=== PATIENT | female | born 1985 | race Hispanic/Latino ===

== ENCOUNTER 2019-08-14 20:27 | Emergency (ER) | payer SELFPAY ==
[2019-08-14] MEDS ORDERED: ACETAMINOPHEN 500 MG TAB ONE (21:12)
--- NOTE | 2019-08-14 23:19 | ER ---
Nurse's Notes [facility] Name: Florina Murphy Age: 33 yrs Sex: Female : 1985 Arrival Date: 08/14/2019 Time: 20:31 Bed 17 Private MD: Diagnosis: Acute upper respiratory infection, unspecified Presentation: 08/13 20:40 Chief complaint: Patient states: "Cough with body aches, shortness of breath and sore vc throat for 3 days.". Coronavirus screen: Surgical mask placed on patient. Patient moved to private room, placed in contact and droplet isolation with eye protection until further assessment. Patient reports a cough. Patient reports shortness of breath or difficulty breathing. Patient reports a measured and/or subjective temperature greater than 100.4F. Patient denies travel on a cruise ship or to a country the [facility] currently lists as an affected area. Patient denies contact with known and/or suspected case of COVID-19. Ebola Screen: No symptoms or risks identified at this time. 20:40 Method Of Arrival: Ambulatory vc 21:00 Initial Sepsis Screen: Does the patient meet any 2 criteria? RR > 20 per min. Temp vc <36.0*C (96.8*F)) or > 38.3*C (100.9*F). HR > 90 bpm. Yes Does the patient have a suspected source of infection? Yes: Productive cough/pneumonia If YES to both, name of provider notified: Yulia Flores BEATER LEAD-Anton Risk Assessment: Do you want to hurt yourself or someone else? Patient reports no desire to harm self or others. Onset of symptoms was August 11, 2019. 21:00 Acuity: ALTON 3 vc Triage Assessment: 22:32 General: Appears in no apparent distress. uncomfortable, ill, Behavior is calm, vc cooperative, appropriate for age. Pain: Complains of pain in throat. 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 - Social history:: Smoking status: Patient denies any tobacco usage or history of. Screenin:00 Abuse screen: Denies threats or abuse. Nutritional screening: No deficits noted. vc Tuberculosis screening: No symptoms or risk factors identified. Fall Risk None identified. Assessment: 21:00 General: Appears in no apparent distress. uncomfortable, ill, Behavior is calm, vc cooperative, appropriate for age. Neuro: Level of Consciousness is awake, alert, obeys commands, Oriented to person, place, time, situation, Appropriate for age. Cardiovascular: Reports shortness of breath, Patient's skin is warm and dry. Respiratory: Reports shortness of breath cough that is pain with cough Airway is patent Respiratory effort is even, labored, Respiratory pattern is regular, symmetrical. GI: No signs and/or symptoms were reported involving the gastrointestinal system. : No signs and/or symptoms were reported regarding the genitourinary system. Derm: Skin is intact, is healthy with good turgor, Skin temperature is hot. 22:00 Reassessment: Patient appears in no apparent distress at this time. Patient and/or vc family updated on plan of care and expected duration. Pain level reassessed. 23:00 Reassessment: Patient appears in no apparent distress at this time. Patient and/or vc family updated on plan of care and expected duration. Pain level reassessed. Vital Signs: 21:00 BP 129 / 77; Pulse 113; Resp 24; Temp 103; Pulse Ox 96% on R/A; vc 22:00 BP 110 / 67; Pulse 93; Resp 20; Pulse Ox 96% on R/A; vc 22:44 Pulse 95; Temp 100.0(O); Pulse Ox 95% on R/A; vc 23:23 BP 100 / 64; Pulse 91; Resp 20; Pulse Ox 96% on R/A; vc ED Course: 20:31 Patient arrived in ED. ag3 20:32 Yulia Flores FNP-C is PHCP. kb 20:32 Mil Massey MD is Attending Physician. kb 20:37 Johana Parmar RN is Primary Nurse. vc 21:00 Arm band placed on. vc 21:00 Patient has correct armband on for positive identification. Side rails up X 1. Pulse ox vc on. NIBP on. 21:09 Chest Single View XRAY In Process Unspecified. EDMS 21:27 Triage completed. vc 23:35 No provider procedures requiring assistance completed. Patient did not have IV access vc during this emergency room visit. Administered Medications: 21:25 Drug: Tylenol 1000 mg Route: PO; vc 22:47 Follow up: Response: Temperature is decreased vc Outcome: 23:18 Discharge ordered by . cyndee 23:36 Discharged to home ambulatory. vc 23:36 Condition: good 23:36 Discharge instructions given to patient, Instructed on discharge instructions, follow up and referral plans. medication usage, Demonstrated understanding of instructions, follow-up care, medications, Prescriptions given X 1. 23:37 Patient left the ED. vc Addendum: 08/19/2019 17:40 Addendum: COVID-19 Result: Positive result giiven to ED physician to notify pt. s s Physician was able to contact pt and pt was notified of positive COVID-19 swab result. Physician answered pt questions. Other: Dr. Kate notified patient. Albuterol inhaler called into [facility] choice, [facility]. Signatures: Dispatcher [employer] EDOK Yulia Flores, BEATER LEAD-C BEATER LEAD-Sugar Rapp, RN RN Myriam Giraldo ag3 Johana Parmar RN RN vc
--- NOTE | 2019-08-14 23:19 | EDPHYS ---
Physician Documentation [facility] Name: Florina Murphy Age: 33 yrs Sex: Female : 1985 Arrival Date: 08/14/2019 Time: 20:31 Bed 17 Private MD: ED Physician Mil Massey HPI: 08/13 20:43 This 33 yrs old Female presents to ER via Unassigned with complaints of Cough. kb 20:43 The patient or guardian reports cough, that is intermittent, described as mild, flu kb symptoms, low-grade fever, myalgias. Onset: The symptoms/episode began/occurred 3 day(s) ago. Severity of symptoms: At their worst the symptoms were moderate, in the emergency department the symptoms are unchanged. Modifying factors: The symptoms are alleviated by nothing, the symptoms are aggravated by nothing. Associated signs and symptoms: Pertinent positives: fever, sore throat, Pertinent negatives: chest pain, diarrhea, ear ache, nausea, rhinorrhea, vomiting. The patient has not experienced similar symptoms in the past. The patient has not recently seen a physician. 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 - Social history:: Smoking status: Patient denies any tobacco usage or history of. ROS: 20:42 Neck: Negative for injury, pain, and swelling, Cardiovascular: Negative for chest pain, kb palpitations, and edema, Abdomen/GI: Negative for abdominal pain, nausea, vomiting, diarrhea, and constipation, Back: Negative for injury and pain, : Negative for injury, bleeding, discharge, and swelling, MS/Extremity: Negative for injury and deformity, Skin: Negative for injury, rash, and discoloration, Neuro: Negative for headache, weakness, numbness, tingling, and seizure. 20:42 Constitutional: Positive for body aches, chills, fatigue, fever, malaise. 20:42 ENT: Positive for sore throat. 20:42 Respiratory: Positive for cough, Negative for dyspnea on exertion, hemoptysis, orthopnea, pleurisy, shortness of breath, sputum production, wheezing. 20:42 Neuro: Positive for headache. Exam: 20:42 Constitutional: This is a well developed, well nourished patient who is awake, alert, kb and in no acute distress. Head/Face: Normocephalic, atraumatic. ENT: Nares patent. No nasal discharge, no septal abnormalities noted. Tympanic membranes are normal and external auditory canals are clear. Oropharynx with no redness, swelling, or masses, exudates, or evidence of obstruction, uvula midline. Mucous membranes moist. Neck: Trachea midline, no thyromegaly or masses palpated, and no cervical lymphadenopathy. Supple, full range of motion without nuchal rigidity, or vertebral point tenderness. No Meningismus. Chest/axilla: Normal chest wall appearance and motion. Nontender with no deformity. No lesions are appreciated. Cardiovascular: Regular rate and rhythm with a normal S1 and S2. No gallops, murmurs, or rubs. Normal PMI, no JVD. No pulse deficits. Respiratory: Lungs have equal breath sounds bilaterally, clear to auscultation and percussion. No rales, rhonchi or wheezes noted. No increased work of breathing, no retractions or nasal flaring. Abdomen/GI: Soft, non-tender, with normal bowel sounds. No distension or tympany. No guarding or rebound. No evidence of tenderness throughout. Skin: Warm, dry with normal turgor. Normal color with no rashes, no lesions, and no evidence of cellulitis. MS/ Extremity: Pulses equal, no cyanosis. Neurovascular intact. Full, normal range of motion. Neuro: Awake and alert, GCS 15, oriented to person, place, time, and situation. Cranial nerves II-XII grossly intact. Motor strength 5/5 in all extremities. Sensory grossly intact. Cerebellar exam normal. Normal gait. Vital Signs: 21:00 BP 129 / 77; Pulse 113; Resp 24; Temp 103; Pulse Ox 96% on R/A; vc 22:00 BP 110 / 67; Pulse 93; Resp 20; Pulse Ox 96% on R/A; vc 22:44 Pulse 95; Temp 100.0(O); Pulse Ox 95% on R/A; vc 23:23 BP 100 / 64; Pulse 91; Resp 20; Pulse Ox 96% on R/A; vc MDM: 20:33 Patient medically screened. kb 20:42 Data reviewed: vital signs, nurses notes. Data interpreted: Pulse oximetry: on room air kb is 98 %. Interpretation: normal. Counseling: I had a detailed discussion with the patient and/or guardian regarding: the historical points, exam findings, and any diagnostic results supporting the discharge/admit diagnosis, lab results, radiology results, the need for outpatient follow up, a family practitioner, to return to the emergency department if symptoms worsen or persist or if there are any questions or concerns that arise at home. 08/13 20:38 Order name: Flu; Complete Time: 23:18 kb 08/13 20:38 Order name: COVID-19 kb 08/13 20:38 Order name: Chest Single View XRAY kb 08/13 20:40 Order name: Strep; Complete Time: 23:18 kb 08/13 23:20 Order name: Throat Culture EDMS Administered Medications: 21:25 Drug: Tylenol 1000 mg Route: PO; vc 22:47 Follow up: Response: Temperature is decreased vc Disposition: 08/14 04:21 Co-signature as Attending Physician, Mil Massey MD. rn Disposition: 08/14/19 23:18 Discharged to Home. Impression: Acute upper respiratory infection, unspecified. - Condition is Stable. - Discharge Instructions: Viral Respiratory Infection, [id number], COVID-19. - Prescriptions for Albuterol Sulfate 90 mcg/actuation - inhale 1-2 puff by INHALATION route every 4-6 hours; 1 Inhaler. - Medication Reconciliation Form, Thank You Letter, Antibiotic Education, Prescription Opioid Use form. - Follow up: Emergency Department; When: As needed; Reason: Worsening of condition. Follow up: Private Physician; When: 2 - 3 days; Reason: Recheck today's complaints, Continuance of care, Re-evaluation by your physician. Signatures: Dispatcher [employer] EDMS Yulia Flores, CAFE SERVER-C CAFE SERVER-Mil Lee MD MD rn Calcote, Vanessa, RN RN vc Corrections: (The following items were deleted from the chart) 08/13 23:37 23:18 08/14/2019 23:18 Discharged to Home. Impression: Acute upper respiratory vc infection, unspecified. Condition is Stable. Forms are Medication Reconciliation Form, Thank You Letter, Antibiotic Education, Prescription Opioid Use. Follow up: Emergency Department; When: As needed; Reason: Worsening of condition. Follow up: Private Physician; When: 2 - 3 days; Reason: Recheck today's complaints, Continuance of care, Re-evaluation by your physician. kb
[2019-08-14 23:46] VITALS: TEMP 100
[2019-08-14 23:47] VITALS: BP 100/64; O2SAT 96
--- NOTE | 2019-08-15 08:38 | RAD REPORT ---
EXAM DESCRIPTION: RAD - Chest Single View - 08/14/2019 9:09 pm CLINICAL HISTORY: COUGH Chest pain. COMPARISON: No comparisons FINDINGS: Portable technique limits examination quality. Mildly prominent interstitial lung markings. The heart is normal in size. No displaced fractures. IMPRESSION: Mild interstitial pneumonitis is possible.
== END 2019-08-14 23:37 | disposition home or self-care (01) ==
LOC: ER 20:27
DX: U07.1 COVID-19 (principal); J06.9 Acute upper respiratory infection, unspecified
CPT/HCPCS: 71045; 87070; 87081; 87804; 99284; U0002

== ENCOUNTER 2022-02-09 11:20 | Emergency (ER) | payer SELFPAY ==
--- OUTSIDE RECORDS SUMMARY | 2022-02-09 11:24 | XMS REPORT | Continuity of Care Document ---
:1985 Author Organization [facility] t Address [address] [place] [address] Care Team Providers Name Role Phone Leticia Ferris Primary Care Physician [phone] LETICIA TORRES Attending Clinician Unavailable CHRISTINA TINAJERO Attending Clinician Unavailable Leticia Ferris Attending Clinician [phone] Christina Ribera Attending Clinician Doctor Unassigned, [place] Attending Clinician Unavailable JOEL DAMIAN Attending Clinician Unavailable Nurse, Adc Pob Immunization Attending Clinician Unavailable Joel Damian DO Attending Clinician SHORTY MIRANDA Attending Clinician Unavailable Pgy3 Attending Clinician Unavailable Charlie SEE, Renetta Attending Clinician Marilou Moulton Attending Clinician Chanel Bloom MD Attending Clinician MARILOU PLUMMER Attending Clinician Unavailable CHANEL BLOOM Attending Clinician Unavailable Ricardo Carver Attending Clinician RICARDO JACOBSEN Attending Clinician Unavailable Pob, Adc Lab Main Attending Clinician Unavailable Kimi Diaz RN Attending Clinician Unavailable TAO TURNER Attending Clinician Unavailable Tao Turner MD Attending Clinician Payers Payer Name Policy Type Policy Number Effective Date Expiration Date S ourlisa Problems Condition Condition Condition Status Onset Resolution Last Treating Co mments Source Name Details Category Date Date Treatment Clinician Date 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) Other Other Disease Active Univers general general 1-28 [place] counseling [place] and advice 00 Me dical for for Branch contracept contracept pernell pernell management management Irregular Irregular Disease Active Uni vers menstrual menstrual 03-08 ity of cycle cycle 00:00: [place] 00 [facility] Branch Patient Patient Disease Active Univers desires desires 1-16 [place] Infertilit Infertilit Disease Active U nivers y y 5-02 [place] Obesity Obesity Disease Active Overview: Univ ers (BMI (BMI 3-16 Formattin ity of 30-39.9) 30-39.9) 00:00: g of this Justin as 00 note Medical might be Branch different from the original. ICD10 Diagnosis Term Automation Analyst Utility Allergies, Adverse Reactions, Alerts Allergy Allergy Status Severity Reaction(s) Onset Inactive Treating Comm ents Source Name Type Date Date Clinician NO KNOWN Drug Active Univers ALLERGIE Class ity of S [facility] Social History Social Habit Start Date Stop Date Quantity Comments Source Exposure to 2021-11-12 2021 Not sure [facility] SARS-CoV-2 00:00:00 09:14:00 [place] [facility] (event) Branch Alcohol intake 2021 2021 Current University of 00:00:00 00:00:00 non-drinker of [facility] alcohol (finding) Branch Tobacco use and 2021 2021 Smokeless tobacco Un iversity of exposure 00:00:00 00:00:00 non-user [facility] Sex Ass[birth year] At [birth year] Universit y of 00:00:00 00:00:00 [facility] Smoking Status Start Date Stop Date Source Never smoked tobacco [facility] Medications Ordered Filled Start Stop Current Ordering Indication Dosage Frequency Signature Comments Components Source Medication Medication Date Date Medication? Clinician (SIG) Name Name No known 2021-02 No No known Unive rs medications 0-14 medication it y of 09:34: [address] No known 2021-02 No No known Unive rs medications 0-14 medication it y of 09:34: [address] No known 2021-02 No No known Unive rs medications 0-14 medication it y of 09:34: [address] No known 2021-02 No No known Unive rs medications 0-14 medication it y of 09:34: [address] No known 2021-02 No No known Unive rs medications 0-14 medication it y of 09:34: [address] No known 2021-02 No No known Unive rs medications 0-14 medication it y of 09:34: [address] No known 2021-02 No No known Unive rs medications 0-14 medication it y of 09:34: [address] No known 2021-02 No No known Unive rs medications 0-14 medication it y of 09:34: [address] No known 2021-02 No No known Unive rs medications 0-14 medication it y of 09:34: [address] No known 2021-02 No No known Unive rs medications 0-14 medication it y of 09:34: [address] No known No Univers medications 6-24 ity of 10:42: [address] Immunizations Ordered Filled Immunization Date Status Comments Sourc e Immunization Name Name SARS-COV-2 COVID-19 2021-02-22 Completed Unive rsity of PFIZER VACCINE 00:00:00 [facility] SARS-COV-2 COVID-19 2021-02-22 Completed Unive rsity of PFIZER VACCINE 00:00:00 [facility] SARS-COV-2 COVID-19 2021-02-22 Completed Unive rsity of PFIZER VACCINE 00:00:00 [facility] Branch SARS-COV-2 COVID-19 2021-02-22 Completed Unive rsity of PFIZER VACCINE 00:00:00 [facility] Branch SARS-COV-2 COVID-19 2021-02-22 Completed Unive rsity of PFIZER VACCINE 00:00:00 [facility] Branch SARS-COV-2 COVID-19 2021-02-22 Completed Unive rsity of PFIZER VACCINE 00:00:00 [facility] Branch SARS-COV-2 COVID-19 2021-02-22 Completed Unive rsity of PFIZER VACCINE 00:00:00 [facility] Branch SARS-COV-2 COVID-19 2021-02-22 Completed Unive rsity of PFIZER VACCINE 00:00:00 [facility] SARS-COV-2 COVID-19 2021-02-22 Completed Unive rsity of PFIZER VACCINE 00:00:00 [facility] SARS-COV-2 COVID-19 2021-02-22 Completed Unive rsity of PFIZER VACCINE 00:00:00 [facility] SARS-COV-2 COVID-19 2021-02-22 Completed Unive rsity of PFIZER VACCINE 00:00:00 [facility] Branch SARS-COV-2 COVID-19 2020-07-12 Completed Unive rsity of PFIZER VACCINE 00:00:00 [facility] Branch SARS-COV-2 COVID-19 2020-07-12 Completed Unive rsity of PFIZER VACCINE 00:00:00 [facility] SARS-COV-2 COVID-19 2020-07-12 Completed Unive rsity of PFIZER VACCINE 00:00:00 [facility] Branch SARS-COV-2 COVID-19 2020-07-12 Completed Unive rsity of PFIZER VACCINE 00:00:00 [facility] Branch SARS-COV-2 COVID-19 2020-07-12 Completed Unive rsity of PFIZER VACCINE 00:00:00 [facility] Branch SARS-COV-2 COVID-19 2020-07-12 Completed Unive rsity of PFIZER VACCINE 00:00:00 [facility] SARS-COV-2 COVID-19 2020-07-12 Completed Unive rsity of PFIZER VACCINE 00:00:00 [facility] SARS-COV-2 COVID-19 2020-07-12 Completed Unive rsity of PFIZER VACCINE 00:00:00 [facility] SARS-COV-2 COVID-19 2020-07-12 Completed Unive rsity of PFIZER VACCINE 00:00:00 [facility] SARS-COV-2 COVID-19 2020-07-12 Completed Unive rsity of PFIZER VACCINE 00:00:00 [facility] SARS-COV-2 COVID-19 2020-07-12 Completed Unive rsity of PFIZER VACCINE 00:00:00 [facility] SARS-COV-2 COVID-19 2020-06-22 Completed Unive rsity of PFIZER VACCINE 00:00:00 [facility] SARS-COV-2 COVID-19 2020-06-22 Completed Unive rsity of PFIZER VACCINE 00:00:00 [facility] SARS-COV-2 COVID-19 2020-06-22 Completed Unive rsity of PFIZER VACCINE 00:00:00 [facility] SARS-COV-2 COVID-19 2020-06-22 Completed Unive rsity of PFIZER VACCINE 00:00:00 [facility] SARS-COV-2 COVID-19 2020-06-22 Completed Unive rsity of PFIZER VACCINE 00:00:00 [facility] SARS-COV-2 COVID-19 2020-06-22 Completed Unive rsity of PFIZER VACCINE 00:00:00 [facility] SARS-COV-2 COVID-19 2020-06-22 Completed Unive rsity of PFIZER VACCINE 00:00:00 [facility] SARS-COV-2 COVID-19 2020-06-22 Completed Unive rsity of PFIZER VACCINE 00:00:00 [facility] SARS-COV-2 COVID-19 2020-06-22 Completed Unive rsity of PFIZER VACCINE 00:00:00 [facility] SARS-COV-2 COVID-19 2020-06-22 Completed Unive rsity of PFIZER VACCINE 00:00:00 [facility] SARS-COV-2 COVID-19 2020-06-22 Completed Unive rsity of PFIZER VACCINE 00:00:00 [facility] Influenza Virus 2019-02-24 Completed Universit y of Vaccine Quad .5 mL 00:00:00 [place] [facility] MO Branch Influenza Virus 2019-02-24 Completed Universit y of Vaccine Quad .5 mL 00:00:00 [place] [facility] 6+ MO Branch Influenza Virus 2019-02-24 Completed Universit y of Vaccine Quad .5 mL 00:00:00 [place] [facility] 6+ MO Branch Influenza Virus 2019-02-24 Completed Universit y of Vaccine Quad .5 mL 00:00:00 [place] [facility] 6+ MO Branch Influenza Virus 2019-02-24 Completed Universit y of Vaccine Quad .5 mL 00:00:00 [place] [facility] 6+ MO Branch Influenza Virus 2019-02-24 Completed Universit y of Vaccine Quad .5 mL 00:00:00 [place] [facility] 6+ MO Branch Influenza Virus 2019-02-24 Completed Universit y of Vaccine Quad .5 mL 00:00:00 [place] [facility] 6+ MO Branch Influenza Virus 2019-02-24 Completed Universit y of Vaccine Quad .5 mL 00:00:00 [place] [facility] 6+ MO Branch Influenza Virus 2019-02-24 Completed Universit y of Vaccine Quad .5 mL 00:00:00 [place] [facility] 6+ MO Branch Influenza Virus 2019-02-24 Completed Universit y of Vaccine Quad .5 mL 00:00:00 [place] [facility] 6+ MO Branch Influenza Virus 2019-02-24 Completed Universit y of Vaccine Quad .5 mL 00:00:00 [facility] 6+ MO Branch TDAP 2014-03-28 Completed University of 00:00:00 [facility] TDAP 2014-03-28 Completed University of 00:00:00 [facility] TDAP 2014-03-28 Completed University of 00:00:00 [facility] TDAP 2014-03-28 Completed University of 00:00:00 [facility] TDAP 2014-03-28 Completed University of 00:00:00 [facility] TDAP 2014-03-28 Completed University of 00:00:00 [facility] TDAP 2014-03-28 Completed University of 00:00:00 [facility] TDAP 2014-03-28 Completed University of 00:00:00 [facility] TDAP 2014-03-28 Completed University of 00:00:00 [facility] TDAP 2014-03-28 Completed University of 00:00:00 [facility] TDAP 2014-03-28 Completed University of 00:00:00 [facility] MMR 2009-09-13 Completed University of 00:00:00 [place] [facility] MMR 2009-09-13 Completed University of 00:00:00 [place] [facility] MMR 2009-09-13 Completed University of 00:00:00 [place] [facility] MMR 2009-09-13 Completed University of 00:00:00 [place] [facility] MMR 2009-09-13 Completed University of 00:00:00 [place] [facility] MMR 2009-09-13 Completed University of 00:00:00 [place] [facility] MMR 2009-09-13 Completed University of 00:00:00 [place] [facility] MMR 2009-09-13 Completed University of 00:00:00 [place] [facility] MMR 2009-09-13 Completed University of 00:00:00 [place] [facility] MMR 2009-09-13 Completed University of 00:00:00 [place] [facility] MMR 2009-09-13 Completed University of 00:00:00 [facility] PPD (TB) 2009-04-25 Completed University of 00:00:00 [facility] PPD (TB) 2009-04-25 Completed University of 00:00:00 [facility] PPD (TB) 2009-04-25 Completed University of 00:00:00 [facility] PPD (TB) 2009-04-25 Completed University of 00:00:00 [facility] PPD (TB) 2009-04-25 Completed University of 00:00:00 [facility] PPD (TB) 2009-04-25 Completed University of 00:00:00 [facility] PPD (TB) 2009-04-25 Completed University of 00:00:00 [facility] PPD (TB) 2009-04-25 Completed University of 00:00:00 [facility] PPD (TB) 2009-04-25 Completed University of 00:00:00 [facility] PPD (TB) 2009-04-25 Completed University of 00:00:00 [facility] PPD (TB) 2009-04-25 Completed University of 00:00:00 [facility] Branch Td 2003-11-15 Completed University of 00:00:00 [facility] Branch Td 2003-11-15 Completed University of 00:00:00 [place] [facility] Td 2003-11-15 Completed University of 00:00:00 [place] [facility] Td 2003-11-15 Completed University of 00:00:00 [place] [facility] Td 2003-11-15 Completed University of 00:00:00 [place] [facility] Td 2003-11-15 Completed University of 00:00:00 [place] [facility] Td 2003-11-15 Completed University of 00:00:00 [place] [facility] Td 2003-11-15 Completed University of 00:00:00 [place] [facility] Td 2003-11-15 Completed University of 00:00:00 [place] [facility] Td 2003-11-15 Completed University of 00:00:00 [facility] TD, NOS 2003-11-15 Completed University of 00:00:00 [facility] Vital Signs Vital Name Observation Time Observation Value Comments Source Systolic blood 2021 14:16:00 116 mm[Hg] Univer sity of pressure [place] [facility] Diastolic blood 2021 14:16:00 72 mm[Hg] Unive rsity of pressure [place] [facility] Heart rate 2021 14:16:00 82 /min Universi ty of [facility] Body temperature 2021 14:16:00 36.17 Louise Univ ersity of [facility] Branch Respiratory rate 2021 14:16:00 18 /min Univ ersity of [place] [facility] Body weight 2021 14:16:00 74.753 kg Universi ty of [place] [facility] BMI 2021 14:16:00 32.19 kg/m2 Universi ty of [place] [facility] Systolic blood 2021-08-02 15:36:00 115 mm[Hg] Univer sity of pressure [place] [facility] Diastolic blood 2021-08-02 15:36:00 72 mm[Hg] Unive rsity of pressure [facility] Heart rate 2021-08-02 15:36:00 88 /min Universi ty of [place] [facility] Body temperature 2021-08-02 15:36:00 36.78 Louise Univ ersity of [place] [facility] Respiratory rate 2021-08-02 15:36:00 18 /min Univ ersity of [place] [facility] Body height 2021-08-02 15:36:00 152.4 cm Universi ty of [place] [facility] Body weight 2021-08-02 15:36:00 76.403 kg Universi ty of [place] [facility] BMI 2021-08-02 15:36:00 32.90 kg/m2 Universi ty [facility] Procedures Procedure Date / Time Performing Clinician Source Performed AUTHORIZATION FOR 2021-12-20 06:01:00 Doctor Unassigned, No [facility] RELEASE OF PHI Name [facility] BCCS-RELATED 2021 05:01:00 Doctor Unassigned, No [facility] DOCUMENTATION Name [facility] Encounters Start End Encounter Admission Attending Care Care Encounter Source Date/Time Date/Time Type Type Clinicians Facility Department ID 2022-01-24 2022-01-24 [facility] [id number] Univers 00:00:00 00:00:00 Leticia Walton [employer] [id number] ity of [facility] [id number] Justin as MATERNAL [phone] [facility] & CHILD [address] [place] [address] 2022-01-23 2022-01-23 Outpatient R TANVI [facility] [id number] Univers 09:30:00 09:30:00 CHRISTINA cazares [facility] 2022-01-23 2022-01-23 [facility]phone [facility] [id number] Univers 00:00:00 00:00:00 Christina Perez [employer] [id number] ity of [facility] [id number] Justin as MATERNAL [phone] [facility] ical & CHILD [address] [place] [address] 2021-12-20 2021-12-20 Orders Doctor TORO [id number] Univers 00:00:00 00:00:00 Only Unassigned, TIM [id number] ity of [place] [facility] [id number] Justin as [id number] [address] 2021-12-18 2021-12-18 [facility] [id number] Univers 00:00:00 00:00:00 Leticia Walton [employer] [id number] ity of [facility] [id number] Justin as MATERNAL [phone] [facility] ical & CHILD [address] [place] [address] 2021 2021 Outpatient R JOSÉ MIGUEL [facility] [id number] Univers 09:15:00 09:37:44 LETICIA cazares [facility] 2021 2021 Office [facility] [id number] Univers 09:15:00 09:37:44 Visit Leticia C [employer] [id number] [facility] [id number] Justin as MATERNAL [phone] [facility] & CHILD [address] [place] [address] 2021 2021 Outpatient R JOSÉ MIGUEL, [facility] [id number] Univers 09:00:00 09:00:00 LETICIA engel o [facility] 2021 2021 Outpatient R JOSÉ MIGUEL, [facility] [id number] Univers 08:45:00 08:45:00 LETICIA engel o [facility] 2021 2021 Orders Doctor TORO [id number] Univers 00:00:00 00:00:00 Only Unassigned, TIM [id number] ity of [place] [facility] [id number] Justin as [id number] [address] 2021-08-02 2021-08-02 Outpatient R JOSÉ MIGUEL, [facility] [id number] Univers 10:30:00 11:27:32 LETICIA engel o deboar [facility] 2021-08-02 2021-08-02 [facility] [id number] Univers 10:30:00 11:27:32 Visit Leticia Walton [employer] [id number] [facility] [id number] Justin as MATERNAL [phone] [facility] & CHILD [address] [place] [address] 2021-08-02 2021-08-02 Outpatient R JOSÉ MIGUEL, [facility] [id number] Univers 10:30:00 10:30:00 LETICIA engel o debora [facility] 2021-03-08 2021-03-08 Office [facility] [id number] Univers 10:30:00 10:45:00 Visit Leticia Walton [employer] [id number] [facility] [id number] Justin as MATERNAL [phone] Med ical & CHILD [address] [place] [address] 2021-03-08 2021-03-08 Outpatient R JOSÉ MIGUEL [facility] [id number] Univers 10:30:00 10:30:00 LETICIA toro o [facility] 2021-03-08 2021-03-08 Outpatient R JOSÉ MIGUEL [facility] [id number] Univers 10:00:00 10:00:00 LETICIA engel o [facility] 2021-03-08 2021-03-08 [facility] [id number] Univers 10:00:00 10:00:00 LETICIA toro o [facility] 2021-03-08 2021-03-08 Orders Doctor TORO [id number] Univers 00:00:00 00:00:00 Only UnassignedTIM [id number] [facility] [id number] Justin as [phone] [address] 2021-02-22 2021-02-22 Outpatient R NATI [facility] [id number] Univers 15:30:00 15:36:22 JOEL engel [facility] 2021-02-22 2021-02-22 Imm/Inj Nurse, Adc Pob Immunization [facility] [id number] Univers 15:30:00 15:36:22 Visit Joel Damian [facility] 350.1.13 .10 ity [facility] [id number] [place] PROFESS[place] [id number] Vt dical [address] 2021-02-15 2021-02-15 Outpatient R RUBEN [facility] [id number] Univers 10:30:00 10:30:00 SHORTY khoury [facility] 2020-12-14 2020-12-14 Orders Doctor TORO [id number] Univers 00:00:00 00:00:00 Only Unassigned, TIM [id number] ity of [place] [facility] [id number] Justin as [phone] [facility] 009 Branch 2020-12-11 2020-12-11 Telephone Pgy3 UNIVERSIT [id number] Univers 00:00:00 00:00:00 Y HEALTH [id number] i ty of [id number] [id number] [facility] [address] 2020-09-14 2020-09-14 Office Pgy3 UNIVERSIT [id number] Univers 12:49:38 13:51:59 Visit Anupama Guerra Y HEALTH [id number] ity of [id number] [id number] [facility] [address] 2020-09-14 2020-09-14 Outpatient R [facility] [id number] Univers 13:30:00 13:30:00 ity [facility] 2020-08-08 2020-08-08 Telephone [facility] [id number] Univers 00:00:00 00:00:00 Marilou Monzon [employer] [id number] it y of [facility] [id number] Justin as MATERNAL [phone] Med ical & CHILD [address] [place] [address] 2020-08-06 2020-08-06 Hospital Chanel Bloom UNIVERSIT [id number] Univers 10:00:00 23:59:00 Encounter Y HEALTH [id number] ity of [id number] [id number] [facility] [address] 2020-08-06 2020-08-06 Outpatient R KAVITHA [facility] [id number] Univers 08:45:00 08:45:00 MARILOU engel [facility] 2020-08-06 2020-08-06 Outpatient R CHANEL BLOOM [facility] [id number] Univers 00:00:00 00:00:00 ity [facility] 2020-08-06 2020-08-06 Telephone [facility] [id number] Univers 00:00:00 00:00:00 Marilou Nicolás [employer] [id number] [facility] [id number] Justin as MATERNAL [phone] [facility] & [address] 2020-08-03 2020-08-03 Outpatient R PARTH BLOOMN [facility] [id number] Univers 00:00:00 00:00:00 ity [facility] 2020-07-31 2020-07-31 Office [facility] [id number] Univers 16:13:31 16:42:39 Visit Kymdarshana Restrepo [employer] [id number] [facility] [id number] Justin as MATERNAL [id number] [address] 2020-07-31 2020-07-31 [facility] [id number] Univers 16:15:00 16:15:00 KYMDARSHANA ity o f [facility] 2020-07-30 2020-07-30 Outpatient R KAVITHA [facility] [id number] Univers 13:45:00 13:45:00 MARILOU [facility] 2020-07-27 2020-07-27 Outpatient R WOLFPARTHN [facility] [id number] Univers 08:15:00 08:15:00 ity of [facility] 2020-07-26 2020-07-26 Outpatient R WOLFPARTHN [facility] [id number] Univers 09:00:00 09:00:00 ity of [facility] 2020-07-26 2020-07-26 [employer] Developer Yuki [facility] Main [facility] [id number] Univers 08:37:48 08:52:48 Visit Wolf Chanel Gerard [id number] ity [facility] [id number] Profess[place] [id number] Vt dic[address] 2020-07-24 2020-07-24 Outpatient R CHANEL BLOOM [facility] [id number] Univers 15:30:00 15:30:00 ity of [facility] 2020-07-20 2020-07-20 Office [facility]ín[facility]UN[facility] [id number] Univers 13:14:19 14:06:03 Visit Leticia Walton [employer] [id number] [facility] [id number] Justin as MATERNAL [phone] [facility] ical & CHILD [address] [place] [address] 2020-07-20 2020-07-20 Outpatient R JOSÉ MIGUEL [facility] [id number] Univers 12:45:00 12:45:00 LETICIA engel o f [facility] 2020-07-12 2020-07-12 Outpatient Kaye DAMIAN [facility] [id number] Univers 16:40:00 16:48:27 [facility] 2020-07-12 2020-07-12 Outpatient Kaye [facility] [id number] Univers 16:40:00 16:40:00 [facility] 2020-06-27 2020-06-27 Telephone Emily Young [id number] Univers 00:00:00 00:00:00 , Kimi Franklin [id number] [facility] [phone] [address] 2020-06-25 2020-06-25 Outpatient Kaye [facility] [id number] Univers 15:00[facility]00 [facility]00[facility] 2020-06-22 Outpatient Kaye [facility] [id number] Univers 16:20:00 16:20:00 [facility] 2020-06-21 2020-06-21 Outpatient Kaye [facility] [id number] Univers 10:00:00 10:00:00 [facility] 2020-06-20 2020-06-20 Outpatient R [facility] [id number] Univers 16:20:00 16:20:00 [facility] 2020-06-07 2020-06-07 Outpatient Kaye [facility] [id number] Univers 14:00:00 14:00:00 SENDIL ity [facility] 2020-06-01 2020-06-01 Outpatient [facility] [id number] Univers 14:20:00 14:20:00 ity of [facility] 2020-05-14 2020-05-14 Outpatient R YUE [facility] [id number] Univers 10:30:00 10:30:00 SENDIL ity [facility] 2020-05-14 2020-05-14 [facility] [id number] Univers 10:30:00 10:30:00 SENDIL ity of [facility] 2020-05-10 2020-05-10 [facility] [id number] Univers 11:00:00 10:53:43 SENDIL ity [facility] 2020-05-10 2020-05-10 [facility] [id number] Univers 11:00:00 10:53:43 SENDIL ity [facility] 2020-05-10 2020-05-10 Office Yue [facility] [id number] Univers 09:39:19 10:53:43 Visit Tao Gerard [id number] it[id number] [phone] [place] [address] [facility] 2020-05-04 2020-05-04 Orders Doctor MUNA [id number] Univers 00:00:00 00:00:00 Only Unassigned, TMI [id number] ity of [place] [facility] [id number] Justin as [phone] [address] 2019-09-08 2019-09-08 Office Kavitha RICHRISTIAN [id number] Univers 10:44:43 11:46:23 Visit Marilou Monzon [employer] [id number] it y of [facility] [id number] Justin as MATERNAL [phone] Med ical & CHILD [address] [place] [address] 2019-09-08 2019-09-08 Outpatient R [facility] [id number] Univers 10:30:00 10:30:00 MARILOU toro of [facility] 2019-06-29 2019-06-29 Telephone [facility] [id number] Univers 00:00:00 00:00:00 Marilou Monzon [employer] [id number] it y of [facility] [id number] Justin as MATERNAL [phone] [facility] ical & CHILD [address] [place] [address] 2019-05-25 2019-05-25 Telephone [facility] [id number] Univers 00:00:00 00:00:00 Marilou Monzon [employer] [id number] it y of [facility] [id number] Justin as MATERNAL [phone] [facility] & [address] 2019-02-24 2019-02-24 Office [facility] [id number] Univers 10:32:52 11:14:31 Visit Marilou Monzon [employer] [id number] it y of [facility] [id number] Justin as MATERNAL [phone] [facility] & [address] 2019-02-24 2019-02-24 Orders Doctor MUNA [id number] Univers 00:00:00 00:00:00 Only Unassigned, TIM [id number] ity of [place] [facility] [id number] Justin as [phone] [place] [address] Branch Results This patient has no known results.
[2022-02-09] MEDS ORDERED: predniSONE 20 MG TAB ONE (11:44)
--- NOTE | 2022-02-09 11:45 | EDPHYS ---
Physician Documentation [facility] Name: Florina Murphy Age: 36 yrs Sex: Female : 1985 Arrival Date: 02/09/2022 Time: 11:24 Bed IW1 Private MD: ED Physician Mil Massey HPI: 02/09 11:40 This 36 yrs old Female presents to ER via Ambulatory with complaints of Hives. en 11:40 Onset: The symptoms/episode began/occurred gradually, yesterday. 36 yo F with no PMHx en presents to ED with pruritic rash since last night after eating shrimp and fish. She denies previous allergy to seafood. No F/C/N/V. No trouble breathing or swallowing. Took po benadrul last night without improvement. 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 - Social history:: Smoking status: Patient denies any tobacco usage or history of. ROS: 11:40 Constitutional: Negative for fever, chills, and weight loss. en 11:40 Respiratory: Negative for cough, shortness of breath, wheezing. 11:40 Skin: Positive for hives. 11:40 All other systems are negative. Exam: 11:40 Constitutional: This is a well developed, well nourished patient who is awake, alert, en and in no acute distress. Eyes: Pupils equal round and reactive to light, extra-ocular motions intact. Lids and lashes normal. Conjunctiva and sclera are non-icteric and not injected. Cornea within normal limits. Periorbital areas with no swelling, redness, or edema. ENT: Nares patent. No nasal discharge, no septal abnormalities noted. Tympanic membranes are normal and external auditory canals are clear. Oropharynx with no redness, swelling, or masses, exudates, or evidence of obstruction, uvula midline. Mucous membranes moist. Chest/axilla: Normal chest wall appearance and motion. Nontender with no deformity. No lesions are appreciated. Cardiovascular: Regular rate and rhythm with a normal S1 and S2. No gallops, murmurs, or rubs. Normal PMI, no JVD. No pulse deficits. Respiratory: Lungs have equal breath sounds bilaterally, clear to auscultation and percussion. No rales, rhonchi or wheezes noted. No increased work of breathing, no retractions or nasal flaring. Skin: scatterd hives on BLE and back. No facial swelling or hives Vital Signs: 11:30 BP 121 / 79; Pulse 95; Resp 15; Temp 98.2; Pulse Ox 100% ; Weight 75.75 kg; Pain 0/10; kr3 MDM: 11:40 Differential diagnosis: food allergy vs contact allergy. Data reviewed: vital signs, en nurses notes. ED course: No labs or imaging required. Will give pt po prednisone in ED and d/c home with po zyrtec and prednisone. . 11:44 Patient medically screened. en Administered Medications: 11:43 Drug: predniSONE 60 mg Route: PO; kr3 17:57 Follow up: Response: No adverse reaction kr3 Disposition: 13:51 Co-signature as Attending Physician, Mil Massey MD. rn Disposition Summary: 02/09/22 11:44 Discharge Ordered Location: Home en Problem: new en Symptoms: are unchanged en Condition: Stable en Diagnosis - Hives en Followup: en - With: Private Physician - When: As needed - Reason: Re-evaluation by your physician Discharge Instructions: - Discharge Summary Sheet en - Hives, [id number] en Forms: - Medication Reconciliation Form en - Thank You Letter en - Antibiotic Education en - Prescription Opioid Use en Prescriptions: - Prednisone 20 mg Oral Tablet - take 3 tablets by ORAL route once daily for 5 days; 15 tablet; Refills: 0, en Product Selection Permitted - Zyrtec 10 mg Oral Tablet - take 1 tablet by ORAL route once daily As needed; 20 tablet; Refills: 0, en Product Selection Permitted Signatures: Mil Massey MD MD rn Newkirk, Elizabeth, PA PA en Reid, Kelley, RN RN kr3
--- NOTE | 2022-02-09 11:45 | ER ---
Nurse's Notes [facility] Name: Florina Murphy Age: 36 yrs Sex: Female : 1985 Arrival Date: 02/09/2022 Time: 11:24 Bed IW1 Private MD: Diagnosis: Hives Presentation: 02/09 11:30 Chief complaint: Patient states: yesterday morning I noticed hives, then I went to work kr3 yesterday and they became worse. The hives itch, bilateral legs, bilateral arms and back. No SOB or breathing problems. Chief complaint: Patient states: I took 2 benadryl last night and they did not help. Coronavirus screen: Vaccine status:. Coronavirus screen: Vaccine status: Patient reports receiving the 2nd dose of the covid vaccine. Ebola Screen: Patient denies travel to an Ebola-affected area in the 21 days before illness onset. Onset: The symptoms/episode began/occurred yesterday. Anaphylaxis evaluation, no signs or symptoms of anaphylaxis were noted. Initial Sepsis Screen: Does the patient meet any 2 criteria? No. Patient's initial sepsis screen is negative. Does the patient have a suspected source of infection? No. Patient's initial sepsis screen is negative. Risk Assessment: Do you want to hurt yourself or someone else? Patient reports no desire to harm self or others. Onset of symptoms was February 08, 2022. 11:30 Method Of Arrival: Ambulatory kr3 11:30 Acuity: ALOTN 4 kr3 Triage Assessment: 11:35 General: Appears in no apparent distress. comfortable, Behavior is calm, cooperative, kr3 appropriate for age. Pain: Denies pain. 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 - Social history:: Smoking status: Patient denies any tobacco usage or history of. Screenin:45 [facility] ED Fall Risk Assessment (Adult) History of falling in the last 3 months, kr3 including since admission No falls in past 3 months (0 pts) Confusion or Disorientation No (0 pts) Intoxicated or Sedated No (0 pts) Impaired Gait No (0 pts) Mobility Assist Device Used No (0 pt) Altered Elimination No (0 pt) Score/Fall Risk Level 0 - 2 = Low Risk. Abuse screen: Denies threats or abuse. Nutritional screening: No deficits noted. Tuberculosis screening: No symptoms or risk factors identified. Assessment: 11:45 Respiratory: Airway is patent Respiratory effort is even, unlabored. kr3 17:57 Respiratory: Breath sounds are clear. kr3 Vital Signs: 11:30 BP 121 / 79; Pulse 95; Resp 15; Temp 98.2; Pulse Ox 100% ; Weight 75.75 kg; Pain 0/10; kr3 ED Course: 11:24 Patient arrived in ED. mr 11:28 Jeanette Ulloa PA is PHCP. en 11:28 Mil Massey MD is Attending Physician. en 11:34 Triage completed. kr3 11:35 Arm band placed on right wrist. Patient placed in waiting room. kr3 11:45 seen in triage. kr3 11:45 No provider procedures requiring assistance completed. Patient did not have IV access kr3 during this emergency room visit. Administered Medications: 11:43 Drug: predniSONE 60 mg Route: PO; kr3 17:57 Follow up: Response: No adverse reaction kr3 Medication: 11:45 VIS not applicable for this client. kr3 Outcome: 11:44 Discharge ordered by . en 11:45 Discharged to home ambulatory. kr3 11:45 Condition: stable 11:45 Discharge instructions given to patient, Instructed on discharge instructions, follow up and referral plans. medication usage, Demonstrated understanding of instructions, follow-up care, medications, Prescriptions given X 2. 12:11 Patient left the ED. kr3 Signatures: Castillo, Abril mr Jeanette Ulloa PA PA en Reid, Kelley, RN RN kr3 Corrections: (The following items were deleted from the chart) 11:35 11:35 Arm band placed on Patient placed kr3 kr3
[2022-02-09 12:33] VITALS: BP 121/79; TEMP 98.2; O2SAT 100
== END 2022-02-09 12:11 | disposition home or self-care (01) ==
LOC: ER 11:20
DX: L50.9 Urticaria, unspecified (principal)
CPT/HCPCS: 99283; J7512

== ENCOUNTER 2023-11-22 04:57 | Emergency (ER) | payer SELFPAY ==
[2023-11-22] MEDS ORDERED: ONDANSETRON 4 MG/2 ML VIAL ONE (05:18)
[2023-11-22] MEDS ORDERED: NA CHLORIDE 0.9% 1,000 ML ONE (05:19)
[2023-11-22] MEDS ORDERED: PROMETHAZINE INJ 25 MG/ML AMP ONE (05:19)
[2023-11-22 05:39] LABS: Absolute Eosinophils 0.1 K/uL (0-0.5); Absolute Lymphocytes (CBC) 0.5 K/uL (0.7-4.9); Absolute Monocytes 0.4 K/uL (0.1-1.3); Absolute Neutrophil 6.6 K/uL (1.8-8.0); Basophils % 0.2 % (0-1.3); Eosinophils % 1.3 % (0-4.4); Hematocrit 41.5 % (36.0-45.0); Hemoglobin 13.4 g/dL (12.0-15.0); MCH 26.1 pg (27.0-35.0); MCHC 32.4 g/dL (32.0-36.0); MCV 80.6 fL (80-100); MPV 8.8 fL (7.6-11.3); Monocytes % 5.1 % (3.3-12.3); Neutrophils % 86.4 % (41.7-73.7); Platelets 315 thou/uL (152-406); RBC Red Blood Cell Count 5.15 M/uL (3.86-4.86); Red Cell Distribution Width 16.3 % (12.1-15.2)
[2023-11-22 05:46] LABS: Specific Gravity 1.028 (1.005-1.030); Sqamous Epithelial 20-50 /HPF (None Seen); Urine Bacteria None Seen /HPF (<20); Urine Bilirubin NEGATIVE (Negative); Urine Blood Negative (Negative); Urine Clarity Extremely Turbid (Clear); Urine Color Yellow (Yellow); Urine Culture Reflex Order NOT NEEDED; Urine Glucose NEGATIVE (Negative); Urine Ketones NEGATIVE (Negative); Urine Microscopic Reflex YN ORDER UMIC; Urine Mucus 2+ /HPF (None Seen); Urine Nitrite NEGATIVE (Negative); Urine Protein 1+ (Negative); Urine RBC <5 /HPF (None Seen); Urine Urobilinogen Normal (Normal); Urine WBC <5 /HPF (<5)
[2023-11-22 05:47] LABS: Specific Gravity 1.028 (1.005-1.030)
[2023-11-22 05:52] LABS: Albumin 3.8 g/dL (3.4-5.0); Albumin/Globulin Ratio 0.8 (1.1-1.8); Anion Gap 9.1 mEq/L (5.0-15.0); Globulin 4.6 g/dL (2.3-3.5); Potassium 4.1 mEq/L (3.5-5.1); Protein, Total 8.4 g/dL (6.4-8.2)
--- NOTE | 2023-11-22 06:21 | ER ---
Nurse's Notes [facility] Name: Florina Murphy Age: 38 yrs Sex: Female : 1985 Arrival Date: 11/22/2023 Time: 04:57 Bed 7 Private MD: Diagnosis: Vomiting;Dehydration;Abdominal pain, Generalized;UTI/ Urinary tract infection, site not specified Presentation: 11/21 05:14 Chief complaint: Patient states: N/V x2 days. Coronavirus screen: At this time, the bm8 client does not indicate any symptoms associated with coronavirus-19. Ebola Screen: Patient negative for fever greater than or equal to 101.5 degrees Fahrenheit, and additional compatible Ebola Virus Disease symptoms Patient denies exposure to infectious person. Patient denies travel to an Ebola-affected area in the 21 days before illness onset. No symptoms or risks identified at this time. Initial Sepsis Screen: Does the patient meet any 2 criteria? No. Patient's initial sepsis screen is negative. Does the patient have a suspected source of infection? No. Patient's initial sepsis screen is negative. Risk Assessment: Do you want to hurt yourself or someone else? Patient reports no desire to harm self or others. Onset of symptoms was November 20, 2023. 05:14 Method Of Arrival: Ambulatory 8 05:14 Acuity: ALTON 3 bm8 Triage Assessment: 05:15 General: Appears in no apparent distress. uncomfortable, Behavior is calm, cooperative, bm8 appropriate for age. Pain: Complains of pain in suprapubic area, right lower quadrant and left lower quadrant Pain currently is 6 out of 10 on a pain scale. EENT: No deficits noted. No signs and/or symptoms were reported regarding the EENT system. Neuro: No deficits noted. Level of Consciousness is awake, alert, obeys commands, Oriented to person, place, time, situation, Appropriate for age. Cardiovascular: Denies chest pain, Capillary refill < 3 seconds Patient's skin is warm and dry. Respiratory: No deficits noted. Airway is patent Respiratory effort is even, unlabored, Respiratory pattern is regular, symmetrical. GI: Abdomen is flat, non-distended, Bowel sounds present X 4 quads. Abdomen is tender to palpation in right lower quadrant and left lower quadrant Reports lower abdominal pain, intolerance of fluids, intolerance of food, nausea, Pain is 6 out of 10 on a pain scale. vomiting. : No signs and/or symptoms were reported regarding the genitourinary system. Derm: No signs and/or symptoms reported regarding the dermatologic system. Musculoskeletal: No signs and/or symptoms reported regarding the musculoskeletal system. 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 - Infectious Disease History:: Denies. - Family history:: not pertinent. - Social history:: Smoking status: Patient denies any tobacco usage or history of. Screenin:36 [facility] ED Fall Risk Assessment (Adult) History of falling in the last 3 months, bm8 including since admission No falls in past 3 months (0 pts) Confusion or Disorientation No (0 pts) Intoxicated or Sedated No (0 pts) Impaired Gait No (0 pts) Mobility Assist Device Used No (0 pt) Altered Elimination No (0 pt) Score/Fall Risk Level 0 - 2 = Low Risk Oriented to surroundings, Maintained a safe environment, Educated pt \T\ family on fall prevention, incl call for assistance when getting out of bed, Assessed \T\ reinforced patient's understanding of fall precautions, Hourly rounding (assess needs \T\ fall precautionary measures) done, Used ambulatory aids as needed (educated on \T\ assisted with), Used gait belt as appropriate. Abuse screen: Denies threats or abuse. Nutritional screening: No deficits noted. Tuberculosis screening: No symptoms or risk factors identified. Assessment: 06:40 Reassessment: Patient appears in no apparent distress at this time. Patient and/or bm8 family updated on plan of care and expected duration. Pain level reassessed. Patient is alert, oriented x 3, equal unlabored respirations, skin warm/dry/pink. Patient denies pain at this time. Patient states feeling better. Patient states symptoms have improved. GI: No deficits noted. No signs and/or symptoms were reported involving the gastrointestinal system. Vital Signs: 05:14 BP 121 / 81; Pulse 102; Resp 18; Temp 99.3; Pulse Ox 96% ; Weight 76.2 kg; Height 5 ft. bm8 0 in. ; Pain 6/10; 06:40 BP 97 / 56; Pulse 91; Resp 17; Temp 99.1; Pulse Ox 99% ; Pain 0/10; bm8 05:14 Body Mass Index 32.81 (76.20 kg, 152.4 cm) bm8 05:14 Pain Scale: Adult bm8 06:40 Pain Scale: Adult bm8 Sarah Coma Score: 05:36 Eye Response: spontaneous(4). Motor Response: obeys commands(6). Verbal Response: bm8 oriented(5). Total: 15. 06:40 Eye Response: spontaneous(4). Motor Response: obeys commands(6). Verbal Response: bm8 oriented(5). Total: 15. ED Course: 05:02 Patient arrived in ED. [email or web address] 05:03 Ander Caro MD is Attending Physician. olga 05:13 Shaheen Negron, RN is Primary Nurse. bm8 05:15 Triage completed. bm8 05:15 Arm band placed on right wrist. bm8 05:26 Inserted saline lock: 20 gauge in right antecubital area, using aseptic technique. oe Blood collected. Flushed with 10 mL NS. 05:27 PREGU Sent. oe 05:27 Urinalysis w/ reflexes Sent. oe 05:27 Comprehensive Metabolic Panel Sent. oe 05:27 CBC with Diff Sent. oe 05:27 Urine collected: clean catch specimen, suzette colored. oe 05:36 Patient has correct armband on for positive identification. Bed in low position. Call bm8 light in reach. Side rails up X 1. Adult w/ patient. Client placed on continuous cardiac and pulse oximetry monitoring. NIBP monitoring applied. Pulse ox on. NIBP on. Door closed. Noise minimized. Lights dimmed. Warm blanket given. Pillow given. Verbal reassurance given. Head of bed elevated. 05:36 No provider procedures requiring assistance completed. bm8 06:40 Provided Education on: post er care. bm8 06:40 IV discontinued, intact, bleeding controlled, No redness/swelling at site. Pressure bm8 dressing applied. Administered Medications: 05:34 Drug: NS 0.9% IV 1000 ml IV at 1000 ml once; to be given as a bolus over 60 minutes bm8 Route: IV; Rate: 1000 ml; Site: right antecubital; 06:42 Follow up: Response: No adverse reaction; IV Status: Completed infusion; IV Intake: bm8 1000ml 05:34 Drug: Ondansetron IVP 4 mg IVP once; over 2 minutes Route: IVP; Site: right antecubital;bm8 05:57 Follow up: Response: No adverse reaction bm8 05:34 Drug: Promethazine IVP 25 mg IVP once; add to 1 liter ns Route: IVP; Site: right bm8 antecubital; 05:57 Follow up: Response: No adverse reaction bm8 Medication: 05:36 VIS not applicable for this client. bm8 Intake: 06:42 IV: 1000ml; Total: 1000ml. bm8 Outcome: 06:21 Discharge ordered by . olga 06:40 Discharged to home ambulatory, bm8 06:40 Condition: good 06:40 Discharge instructions given to patient, family, Instructed on discharge instructions, follow up and referral plans. no drinking with medication, no driving heavy equipment, medication usage, safety practices, Demonstrated understanding of instructions, follow-up care, medications, Prescriptions given X 3, 06:50 Patient left the ED. bm8 Signatures: Ander Caro MD MD cha Espinosa, Orlando oe Jeffries, Jennifer [email or web address] Shaheen Negron, RN RN bm8
--- NOTE | 2023-11-22 06:21 | EDPHYS ---
Physician Documentation [facility] Name: Florina Murphy Age: 38 yrs Sex: Female : 1985 Arrival Date: 11/22/2023 Time: 04:57 Bed 7 Private MD: ED Physician Ander Caro HPI: 11/21 05:12 This 38 yrs old Female presents to ER via Unassigned with complaints of olga Nausea/Vomiting, Abdominal Pain. 05:12 The patient presents to the emergency department with nausea, vomiting, that is olga continuous, described as bilious. Onset: The symptoms/episode began/occurred 2 day(s) ago. Possible causes: unknown. The symptoms are aggravated by nothing. The symptoms are alleviated by nothing. Associated signs and symptoms: The patient has no apparent associated signs or symptoms. Severity of symptoms: At their worst the symptoms were mild in the emergency department the symptoms are unchanged. The patient has not experienced similar symptoms in the past, but friend has similar symptoms. 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 - Infectious Disease History:: Denies. - Family history:: not pertinent. - Social history:: Smoking status: Patient denies any tobacco usage or history of. ROS: 05:12 Constitutional: Negative for fever, chills, and weight loss, Eyes: Negative for injury, olga pain, redness, and discharge, ENT: Negative for injury, pain, and discharge, Neck: Negative for injury, pain, and swelling, Respiratory: Negative for shortness of breath, cough, wheezing, and pleuritic chest pain, Back: Negative for injury and pain, : Negative for injury, bleeding, discharge, and swelling, MS/Extremity: Negative for injury and deformity, Skin: Negative for injury, rash, and discoloration, Neuro: Negative for headache, weakness, numbness, tingling, and seizure, Psych: Negative for depression, anxiety, suicide ideation, homicidal ideation, and hallucinations, Allergy/Immunology: Negative for hives, rash, and allergies, Endocrine: Negative for neck swelling, polydipsia, polyuria, polyphagia, and marked weight changes, Hematologic/Lymphatic: Negative for swollen nodes, abnormal bleeding, and unusual bruising, 05:12 Cardiovascular: Positive for palpitations, 05:12 Abdomen/GI: Positive for nausea and vomiting, Exam: 05:12 Constitutional: This is a well developed, well nourished patient who is awake, alert, olga and in no acute distress. Head/Face: Normocephalic, atraumatic. Eyes: Pupils equal round and reactive to light, extra-ocular motions intact. Lids and lashes normal. Conjunctiva and sclera are non-icteric and not injected. Cornea within normal limits. Periorbital areas with no swelling, redness, or edema. ENT: Nares patent. No nasal discharge, no septal abnormalities noted. Tympanic membranes are normal and external auditory canals are clear. Oropharynx with no redness, swelling, or masses, exudates, or evidence of obstruction, uvula midline. Mucous membranes moist. Neck: Trachea midline, no thyromegaly or masses palpated, and no cervical lymphadenopathy. Supple, full range of motion without nuchal rigidity, or vertebral point tenderness. No Meningismus. Chest/axilla: Normal chest wall appearance and motion. Nontender with no deformity. No lesions are appreciated. Respiratory: Lungs have equal breath sounds bilaterally, clear to auscultation and percussion. No rales, rhonchi or wheezes noted. No increased work of breathing, no retractions or nasal flaring. Back: No spinal tenderness. No costovertebral tenderness. Full range of motion. Pelvic Exam: Normal external genitalia. Speculum exam with closed cervical os, no discharge or bleeding noted. Bimanual exam with normal adnexa, no adnexal or cervical motion tenderness. Normal uterus. Female : Normal external genitalia. Skin: Warm, dry with normal turgor. Normal color with no rashes, no lesions, and no evidence of cellulitis. MS/ Extremity: Pulses equal, no cyanosis. Neurovascular intact. Full, normal range of motion. Neuro: Awake and alert, GCS 15, oriented to person, place, time, and situation. Cranial nerves II-XII grossly intact. Motor strength 5/5 in all extremities. Sensory grossly intact. Cerebellar exam normal. Normal gait. Psych: Awake, alert, with orientation to person, place and time. Behavior, mood, and affect are within normal limits. 05:12 Cardiovascular: Rate: tachycardic, actual rate is 120 bpm, Pulses: Pulses are 4+ in bilateral radial, brachial, femoral, popliteal, posterior tibial and and dorsalis pedis arteries.. Vital Signs: 05:14 BP 121 / 81; Pulse 102; Resp 18; Temp 99.3; Pulse Ox 96% ; Weight 76.2 kg; Height 5 ft. bm8 0 in. ; Pain 6/10; 06:40 BP 97 / 56; Pulse 91; Resp 17; Temp 99.1; Pulse Ox 99% ; Pain 0/10; bm8 05:14 Body Mass Index 32.81 (76.20 kg, 152.4 cm) bm8 05:14 Pain Scale: Adult bm8 06:40 Pain Scale: Adult bm8 [place] Coma Score: 05:36 Eye Response: spontaneous(4). Motor Response: obeys commands(6). Verbal Response: bm8 oriented(5). Total: 15. 06:40 Eye Response: spontaneous(4). Motor Response: obeys commands(6). Verbal Response: bm8 oriented(5). Total: 15. MDM: 05:03 Patient medically screened. [facility] 05:15 Differential diagnosis: Nonspecific abd pain. Data reviewed: vital signs, nurses notes, [facility] lab test result(s), CBC, electrolytes, hepatic panel, urinalysis. Consideration of Admission/Observation Patient was admitted/placed on observation. Escalation of care including admission/observation considered. I considered the following discharge prescriptions or medication management in the emergency department Medications were administered in the Emergency Department. See APR. 11/21 05:12 Order name: CBC with Diff [facility] 11/21 05:12 Order name: Comprehensive Metabolic Panel; Complete Time: 06:04 [facility] 11/21 05:12 Order name: Urinalysis w/ reflexes; Complete Time: 06:04 [facility] 11/21 05:12 Order name: PREGU; Complete Time: 06:04 [facility] 11/21 05:43 Order name: CBC Smear Scan EDMS Administered Medications: 05:34 Drug: NS 0.9% IV 1000 ml IV at 1000 ml once; to be given as a bolus over 60 minutes bm8 Route: IV; Rate: 1000 ml; Site: right antecubital; 06:42 Follow up: Response: No adverse reaction; IV Status: Completed infusion; IV Intake: bm8 1000ml 05:34 Drug: Ondansetron IVP 4 mg IVP once; over 2 minutes Route: IVP; Site: right antecubital;bm8 05:57 Follow up: Response: No adverse reaction bm8 05:34 Drug: Promethazine IVP 25 mg IVP once; add to 1 liter ns Route: IVP; Site: right bm8 antecubital; 05:57 Follow up: Response: No adverse reaction bm8 Disposition Summary: 11/22/23 06:21 Discharge Ordered Notes: Location: Home olga Problem: new olga Symptoms: have improved olga Condition: Stable olga Diagnosis - Vomiting olga - Dehydration olga - Abdominal pain, Generalized olga - UTI/ Urinary tract infection, site not specified olga Followup: olga - With: Private Physician - When: 2 - 3 days - Reason: Recheck today's complaints, Re-evaluation by your physician Discharge Instructions: - Discharge Summary Sheet olga - Abdominal Pain, Adult olga - Dehydration, Adult olga - Urinary Tract Infection, Adult olga - Urinary Tract Infection, Adult, [id number] olga - Abdominal Pain, Adult, [id number] olga - Vomiting, Adult olga Forms: - Medication Reconciliation Form olga - Antibiotic Education olga - Prescription Opioid Use olga - Patient Portal Instructions [facility] - Leadership Thank You Letter [facility] Prescriptions: - ondansetron 4 mg Oral Tablet,disintegrating - take 1 tablet ORAL route every 6-8 hours for 5 days as needed for nausea and olga vomiting; 20 tablet; Refills: 0, Product Selection Permitted - Cipro 250 mg Oral tablet - take 1 tablet ORAL route every 12 hours; 14 tablet; Refills: 0, Product olga Selection Permitted - promethazine 25 mg Oral tablet - take 1 tablet ORAL route every 6 hours As needed prn intractable nausea and olga vomiting; 15 tablet; Refills: 0, Product Selection Permitted Signatures: Dispatcher [employer] Ander Pacheco MD MD cha McDonald, Brad, RN RN bm8 Corrections: (The following items were deleted from the chart) 05:12 05:12 CBC+H.LAB.BRZ ordered. EDMS EDMS 05:12 05:12 COMPREHENSIVE METABOLIC PANEL+C.LAB.BRZ ordered. EDMS EDMS 05:12 05:12 Urinalysis+U.LAB.BRZ ordered. EDMS EDMS 05:12 05:12 Test, Urine+UC.LAB.BRZ ordered. EDMS EDMS
[2023-11-22 06:42] LABS: Blood Morphology Comment NOT SEEN (NOT SEEN); Platelet Estimate ADEQ; White Blood Cell Scan OK (OK)
[2023-11-22 08:17] VITALS: BP 97/56; TEMP 99.1; O2SAT 99
== END 2023-11-22 06:50 | disposition home or self-care (01) ==
LOC: ER 04:57
DX: E86.0 Dehydration (principal); N39.0 Urinary tract infection, site not specified; R10.84 Generalized abdominal pain
CPT/HCPCS: 36415; 80053; 81001; 81025; 85025; J2405; J2550; J7030